=== PATIENT | male | born 1985 | race African-American/Black ===

== ENCOUNTER 2017-09-20 00:42 | Emergency (ER) | payer SELFPAY ==
[~2017-09-20] VITALS: Ht 182.9 cm; Wt 91.0 kg
[2017-09-20 00:59] VITALS: BP 178/85
== END 2017-09-20 01:30 | disposition left against medical advice (07) ==
LOC: ER 01:04
DX: R04.0 Epistaxis (principal); Z53.21 Procedure and treatment not carried out due to patient leaving prior to being seen by health care provider

== ENCOUNTER 2021-11-20 12:50 | Emergency (ER) | payer MEDICAID ==
[~2021-11-20] VITALS: Ht 182.9 cm; Wt 84.0 kg
[2021-11-20 13:07] VITALS: BP 134/92
[2021-11-20] MEDS ORDERED: IBUPROFEN 400MG TABLET PO ONE (13:45)
== END 2021-11-20 15:06 | disposition home or self-care (01) ==
LOC: ER 12:50
DX: M25.562 Pain in left knee (principal); J45.909 Unspecified asthma, uncomplicated; F12.10 Cannabis abuse, uncomplicated; Z88.0 Allergy status to penicillin
CPT/HCPCS: 73564; 99283